=== PATIENT | male | born 1965 | race Caucasian/White ===

== ENCOUNTER → 2020-12-09 | Outpatient (CLI) | payer SELFPAY ==
--- NOTE | 2020-12-09 10:37 | US ---
EXAMINATION TYPE: US abdomen limited DATE OF EXAM: 12/09/2020 COMPARISON: NONE CLINICAL HISTORY: R10.9 ABD PAIN,R10.11 RUQ PAIN. RUQ pain EXAM MEASUREMENTS: Liver Length: 16.9 cm Gallbladder Wall: 0.2 cm Right Kidney: 10.1 x 4.9 x 5.6 cm Limited due to overlying bowel gas and patient body habitus Pancreas: Obscured by bowel gas Liver: Limited due to patient body habitus Gallbladder: Echogenic focus = 2.4 x 1.9 cm Evidence for sonographic Jeffers's sign: neg CBD: Obscured by overlying bowel gas Right Kidney: No hydronephrosis or masses seen Suboptimal study. Visualized liver markedly heterogeneously hyperechoic making evaluation suboptimal. There is large dependent gallstone. No surrounding fluid or abnormal gallbladder wall thickening see n on images saved. IMPRESSION: Marked fatty infiltration of liver suspected. Underlying hepatocellular disease not exclu ded. Single large gallstone. Suboptimal study but no convincing evidence for acute cholecystitis.
== END | disposition home or self-care (01) ==
LOC: RADUSWWP 09:51
PROVIDERS: ATTEND Family Medicine
DX: K80.20 Calculus of gallbladder without cholecystitis without obstruction (principal)
CPT/HCPCS: 76705

== ENCOUNTER 2021-01-20 06:20 | Day surgery (SDC) | payer SELFPAY ==
[2021-01-18 13:23] VITALS: BMI 35.3
[~2021-01-20 06:20] MED LIST: DEXAMETHASONE SOD PHOSPHATE 4 MG/ML 1 ML VIAL IV ONE; HEPARIN SODIUM,PORCINE/PF 5,000 UNIT/0.5 ML SYRINGE SQ PRN; LACTATED RINGERS 1,000 ML IV SCH; MIDAZOLAM 2 MG/2 ML VIAL IV PRN; ONDANSETRON 4 MG/2 ML VIAL IVP ONE; SCOPOLAMINE 1.5MG/72HR PATCH TRANSDERM ONE
[2021-01-20] MEDS ORDERED: LIDOCAINE 1% (10MG/ML) FOR IV START INTRADERMA ONE (06:56)
[2021-01-20 07:04] LABS: Glucose,Whole Blood 183 mg/dL (75-99)
[2021-01-20] MEDS ORDERED: MIDAZOLAM 2 MG/2 ML VIAL IV ONE (07:15)
[2021-01-20] MEDS ORDERED: INDOCYANINE GREEN 25 MG VIAL IV ONE (07:31)
[2021-01-20] MEDS ORDERED: GLYCOPYRROLATE 0.2 MG/ML 2 ML VIAL ONE (07:31)
[2021-01-20] MEDS ORDERED: NEOSTIGMINE 1 MG/ML 10 ML VIAL ONE (07:31)
[2021-01-20] MEDS ORDERED: PHENYLEPHRINE-0.9% NACL SYG 1,000 MCG/10 ML SYRINGE ONE (07:31)
[2021-01-20] MEDS ORDERED: PROPOFOL 10 MG/ML 20 ML VIAL IV ONE (07:31)
[2021-01-20] MEDS ORDERED: SUCCINYLCHOLINE CHLORIDE 100 MG/5 ML SYR IV ONE (07:31)
[2021-01-20] MEDS ORDERED: fentaNYL (PF) 50 MCG/ML 2 ML AMP ONE (07:31)
[2021-01-20] MEDS ORDERED: ROCURONIUM 10 MG/ML (5 ML VIAL) IV ONE (07:31)
[2021-01-20] MEDS ORDERED: KETOROLAC 15 MG/ML 1 ML VIAL ONE (07:31)
[2021-01-20] MEDS ORDERED: HEPARIN SODIUM,PORCINE 5,000 UNIT/ML 1 ML VIAL ONE (07:31)
[2021-01-20] MEDS ORDERED: INDOCYANINE GREEN 25 MG VIAL IV STA (07:32)
--- NOTE | 2021-01-20 07:34 | P.GSHP ---
History of Present Illness H&P Date: 01/20/21 CHIEF COMPLAINT: Cholecystitis HISTORY OF PRESENT ILLNESS: The patient is a 55-year-old male who presents with history of epigastric including right upper quadrant abdominal pain. He underwent diagnostic studies for the gallbladder. Separately his clinical picture was consistent with cholecystitis. Now he presents for surgical intervention. PAST MEDICAL HISTORY: Please see list PAST SURGICAL HISTORY: Please see list MEDICATIONS: Please see list ALLERGIES: Denies. SOCIAL HISTORY: No illicit drug use or recent tobacco use FAMILY HISTORY: Pertinent for gallbladder disease REVIEW OF ORGAN SYSTEMS: CONSTITUTIONAL: No reports of fevers or chills. HEENT: Denies any troubles with the vision or hearing. PHYSICAL EXAM: VITAL SIGNS: Afebrile vital signs stable GENERAL: Well-developed pleasant male in no acute distress. HEENT: No scleral icterus. Extraocular movements grossly intact. Moist buccal mucosa. NECK: Supple without lymphadenopathy. CHEST: Unlabored respirations. Equal bilateral excursions. CARDIOVASCULAR:Distal 2+ pulses. ABDOMEN: Soft, nondistended. Tender along the epigastrium and right upper quadrant. MUSCULOSKELETAL: No clubbing, cyanosis, or edema. NEURO : No focal or lateralizing signs. Cranial nerves II-12 within normal limits. PSYCH: Alert and oriented to person, place and time. SKIN: Well perfused. Good skin turgor. ASSESSMENT: 1. Epigastric and right upper quadrant abdominal pain 2. Chronic cholecystitis PLAN: 1. Will need a robotic cholecystectomy possible open. Benefits and risks were described. 2. DVT prophylaxis 3. Antibiotic prophylaxis. Past Medical History Past Medical History: Diabetes Mellitus, Hyperlipidemia, Hypertension History of Any Multi-Drug Resistant Organisms: None Reported Past Surgical History: Orthopedic Surgery Additional Past Surgical History / Comment(s): left wrist surgery (fx 2006) Past Anesthesia/Blood Transfusion Reactions: No Reported Reaction Past Psychological History: No Psychological Hx Reported Smoking Status: Current every day smoker Past Alcohol Use History: Rare Additional Past Alcohol Use History / Comment(s): smokes cigars, hx of cigarettes-started as teenager, smoked cigarettes up til 2002 and started smoking cigars 2004. Past Drug Use History: None Reported - Past Family History Mother Family Medical History: No Reported History Medications and Allergies Home Medications Medication Instructions Recorded Confirmed Type Acetaminophen [Tylenol Extra 500 mg PO DIRECTED PRN 01/18/21 01/20/21 History Strength] Glimepiride [Amaryl] 4 mg PO AC-BRKFST 01/18/21 01/20/21 History Ibuprofen [Advil] 600 - 800 mg PO DIRECTED PRN 01/18/21 01/20/21 History Pioglitazone HCl 30 mg PO DAILY 01/18/21 01/20/21 History Pravastatin Sodium [Pravachol] 40 mg PO DAILY 01/18/21 01/20/21 History lisinopriL [Zestril] 20 mg PO DAILY 01/18/21 01/20/21 History metFORMIN HCL [Glucophage] 500 mg PO BID 01/18/21 01/20/21 History Allergies Allergy/AdvReac Type Severity Reaction Status Date / Time No Known Allergies Allergy Verified 01/20/21 06:48 Surgical - Exam Vital Signs Temp Pulse Resp BP Pulse Ox 98.4 F 86 16 174/79 96 01/20/21 06:45 01/20/21 06:45 01/20/21 06:45 01/20/21 06:45 01/20/21 06:45 Results - Labs Abnormal Lab Results - Last 24 Hours (Table) 01/20/21 Range/Units 06:52 POC Glucose (mg/dL) 183 H (75-99) mg/dL
[2021-01-20] MEDS ORDERED: HEPARIN SODIUM,PORCINE/PF 5,000 UNIT/0.5 ML SYRINGE SQ PRN (07:35)
[2021-01-20] MEDS ORDERED: LIDOCAINE 1%-EPI 1:100,000 20 ML VIAL SQ ONE (07:35)
[2021-01-20 08:14] LABS: HCT 38.7 % (39.0-53.0); HGB 13.3 gm/dL (13.0-17.5); MCH 30.8 pg (25.0-35.0); MCHC 34.4 g/dL (31.0-37.0); MCV 89.6 fL (80.0-100.0); Mean Platelet Volume 6.9; Platelet Count 327 k/uL (150-450); RBC 4.32 m/uL (4.30-5.90); RDW 13.2 % (11.5-15.5); WBC 9.2 k/uL (3.8-10.6)
[2021-01-20] MEDS ORDERED: LACTATED RINGERS 1,000 ML IV ONE (08:50)
[2021-01-20] MEDS: HYDROmorphone 0.5 MG/0.5 ML SYRINGE IVP PRN ×2 (09:35→09:49)
[2021-01-20 09:37] VITALS: TEMP 97.6
[2021-01-20] MEDS ORDERED: ACETAMINOPHEN IV (For NPO) 1,000 MG in EMPTY BAG 1 BAG IVPB STA (09:43)
[2021-01-20] MEDS ORDERED: TAMSULOSIN 0.4 MG CAP.ER.24H PO STA (09:43)
[2021-01-20] MEDS ORDERED: SIMETHICONE 80 MG CHEWABLE PO SCH (09:45)
[2021-01-20 09:46] LABS: Glucose,Whole Blood 259 mg/dL (75-99)
--- NOTE | 2021-01-20 09:47 | P.OP ---
Date of Procedure: 01/20/21 Description of Procedure: SURGEON: JEANNETTE FABIAN MD PREOPERATIVE DIAGNOSES: 1. Symptomatic gallstones 2. Right upper quadrant abdominal pain 3. Diabetes type 2 [id number] 4. Morbid obesity due to excess calories BMI 35.8 5. Hypertensive heart disease with cardiomyopathy 6. Hyperlipidemia 7. Tobacco abuse disorder POSTOPERATIVE DIAGNOSES: 1. Symptomatic gallstones 2. Right upper quadrant abdominal pain 3. Diabetes type 2 [id number] 4. Morbid obesity due to excess calories BMI 35.8 5. Hypertensive heart disease with cardiomyopathy 6. Hyperlipidemia 7. Tobacco abuse disorder OPERATION: Robotic-assisted da Chapito Xi laparoscopic cholecystectomy, multiport with FIREFLY ESTIMATED BLOOD LOSS: 5 mL. SPECIMENS REMOVED: Gallbladder. COMPLICATIONS: None. OPERATIVE FINDINGS: 1. Extremely large gallstone over 4 to 5 cm adding complexity to case INDICATIONS: The patient is a 55-year-old male who presents with symptomatic gallstones. Robotic assisted laparoscopic approach was described. Benefits and risks of the procedure including but not limited to bleeding, infection, injury to the biliary tree was described. Informed consent was obtained. DESCRIPTION OF PROCEDURE: Patient was brought to the operating room, placed in supine position. After general induction, the abdomen had been prepped and draped in standard sterile fashion. The robotic da Chapito XI system was primed. After a timeout protocol was performed, the patient had been prepped and draped in standard sterile fashion. The patient was injected with indocyanine green. A 5 mm 0 degrees laparoscopic trocar entry was performed along the left upper quadrant. The abdomen insufflated to 15 mmHg pressure which was tolerated well. Diagnostic laparoscopy demonstrated no injury to bowel viscera or mesentery. The liver surface was unremarkable. Next, two 8 mm robotic ports were placed along the right upper abdomen. The camera 8-mm port was maintained along the epigastrium. Another 8 mm port was placed along the left upper abdominal wall after exchanging the 5 mm port. Please note that the ports were placed at least 10 to 15 cm away from the target anatomy of the gallbladder. The robot was docked along the left lateral abdomen. The patient was repositioned in reverse Trendelenburg position. Using a grasper for arm 3, a grasper for arm 4, including hook cautery for arm 1, the robotic system was docked and primed as described. Instruments were interchanged by the assistant center manager including hook cautery, Bovie cautery and clip appliers. I had sat at the console. Next attention was brought to the infundibulum and cystic structures. The infundibulum and cystic duct were dissected free from surrounding tissues. The cystic duct was isolated. FIREFLY was used to identify the cystic artery and cystic structures. A critical view of safety was obtained. Large PLASTIC clips were used throughout the entire case. Using a clip aquaculture director, 2 clips were placed at the junction of the infundibulum and cystic duct. The cystic duct was divided between clips. Next, the cystic artery was similarly clipped and cauterized. Electro-Bovie cautery was used to remove the gallbladder from the hepatic fossa. Hemostasis was checked and found to be adequate. The robot was undocked. I re-scrubbed into the case. Using a 10 mm Endo Catch bag via the left upper quadrant incision, the specimen was removed from the abdominal cavity. All pneumoperitoneum instruments were evacuated from the abdominal cavity. The incisions were reapproximated using 4-0 Monocryl in an interrupted subcuticular fashion. Fascial defects were less than 8 mm in size. Please note along the trocar sites, local anesthetic was placed as a field block prior to insertion of all instruments. Liquid glue was applied to the skin. At the end of the procedure needle, sponge, and instrument count had been verified correct by the fuel technician. The patient was transferred to postanesthesia care unit in stable condition. Intraoperative films were shared with the patient's family. Plan - Discharge Summary Discharge Rx Participant: Yes New Discharge Prescriptions: New RX: Simethicone [Gas-X] 125 mg PO AC-TID PRN #20 capsule PRN Reason: Pain RX: Tamsulosin [Flomax] 0.4 mg PO DAILY #5 cap.er.24h Acetaminophen Tab [Tylenol Tab] 1,000 mg PO Q6HR PRN #30 tablet PRN Reason: Pain Continue RX: lisinopriL [Zestril] 20 mg PO DAILY RX: Glimepiride [Amaryl] 4 mg PO AC-BRKFST RX: Pioglitazone HCl 30 mg PO DAILY RX: Pravastatin Sodium [Pravachol] 40 mg PO DAILY RX: metFORMIN HCL [Glucophage] 500 mg PO BID RX: Acetaminophen [Tylenol Extra Strength] 500 mg PO DIRECTED PRN PRN Reason: Pain Discontinued Ibuprofen [Advil] 600 - 800 mg PO DIRECTED PRN PRN Reason: Pain Discharge Medication List RX: Acetaminophen [Tylenol Extra Strength] 500 mg PO DIRECTED PRN 01/18/21 [History] RX: Glimepiride [Amaryl] 4 mg PO AC-BRKFST 01/18/21 [History] RX: Pioglitazone HCl 30 mg PO DAILY 01/18/21 [History] RX: Pravastatin Sodium [Pravachol] 40 mg PO DAILY 01/18/21 [History] RX: lisinopriL [Zestril] 20 mg PO DAILY 01/18/21 [History] RX: metFORMIN HCL [Glucophage] 500 mg PO BID 01/18/21 [History] Acetaminophen Tab [Tylenol Tab] 1,000 mg PO Q6HR PRN #30 tablet 01/20/21 [Rx] RX: Simethicone [Gas-X] 125 mg PO AC-TID PRN #20 capsule 01/20/21 [Rx] RX: Tamsulosin [Flomax] 0.4 mg PO DAILY #5 cap.er.24h 01/20/21 [Rx] Follow up Appointment(s)/Referral(s): Jeannette Fabian MD [STAFF PHYSICIAN] - 01/24/21 Patient Instructions/Handouts: Laparoscopic Cholecystectomy (GEN), Low Fat Diet (ED) Activity/Diet/Wound Care/Special Instructions: Recommend low-fat diet for the next 2 days. No lifting over 10 pounds in 2 weeks until February. December shower. No bath tub soaks for two weeks until February. Diet as tolerated. Use Tylenol, simethicone scheduled for the next 24-48 hours for best pain relief. Use ice along incisions for today to prevent swelling. Discharge Disposition: HOME SELF-CARE
[2021-01-20 10:00] LABS: ALT 21 U/L (4-49); AST 21 U/L (17-59); African American GFR (CKD) >90 (>60 ml/min/1.73 sqM); Albumin 3.6 g/dL (3.5-5.0); Alkaline Phosphatase 76 U/L (38-126); Anion Gap 9 mmol/L; Blood Urea Nitrogen 18 mg/dL (9-20); Calcium 8.8 mg/dL (8.4-10.2); Carbon Dioxide 24 mmol/L (22-30); Chloride 105 mmol/L (98-107); Glucose 191 mg/dL (74-99); Non-African American GFR(CKD) >90 (>60 ml/min/1.73 sqM); Potassium 4.7 mmol/L (3.5-5.1); Sodium 138 mmol/L (137-145); Total Bilirubin 0.4 mg/dL (0.2-1.3); Total Protein 5.8 g/dL (6.3-8.2)
[2021-01-20] MEDS ORDERED: INSULIN ASPART (NovoLOG) 100 UNIT/ML VIAL SQ ONE (10:03)
[2021-01-20 10:16] VITALS: RESP 16
[2021-01-20 10:28] LABS: Glucose,Whole Blood 275 mg/dL (75-99)
[2021-01-20 12:05] VITALS: BP 127/73; PULSE 79
== END 2021-01-20 11:56 | disposition home or self-care (01) ==
LOC: OR 06:20
PROVIDERS: ATTEND Surgery Plastic and Reconstructive Surgery
DX: K80.10 Calculus of gallbladder with chronic cholecystitis without obstruction (principal); E11.9 Type 2 diabetes mellitus without complications; E78.5 Hyperlipidemia, unspecified; I11.9 Hypertensive heart disease without heart failure; I42.9 Cardiomyopathy, unspecified; K76.0 Fatty (change of) liver, not elsewhere classified; Z98.890 Other specified postprocedural states; F17.290 Nicotine dependence, other tobacco product, uncomplicated; Z79.84 Long term (current) use of oral hypoglycemic drugs; Z79.899 Other long term (current) drug therapy; E66.01 Morbid (severe) obesity due to excess calories; Z68.35 Body mass index [BMI] 35.0-35.9, adult
CPT/HCPCS: 88304; 80053; 85027; 47564; J2250; J1644 ×2; J1100; J2710; J0690; J2405; J3010; J1885; J2370; J0330; J2704; J1170

== ENCOUNTER → 2021-02-08 | Outpatient (CLI) | payer OTHER ==
[2021-02-08 18:25] LABS: African American GFR (CKD) >90 (>60 ml/min/1.73 sqM); Blood Urea Nitrogen 21 mg/dL (9-20); Non-African American GFR(CKD) >90 (>60 ml/min/1.73 sqM)
--- NOTE | 2021-02-08 22:27 | CT ---
EXAMINATION TYPE: CT abdomen pelvis w con DATE OF EXAM: 02/08/2021 COMPARISON: Ultrasound abdomen limited December 09, 2020 HISTORY: Abdominal pain worsening post cholecystectomy CT DLP: 2001 mGycm, Automated Exposure Control for Dose Reduction was Utilized. CONTRAST: CT scan of the abdomen and pelvis is performed with oral and with IV Contrast, patient injected with 100 mL of Isovue 300. FINDINGS: LUNG BASES: No significant abnormality is appreciated. LIVER/GB: Gallbladder not seen consistent with history of recent cholecystectomy. Visualized liver is heterogeneously hypodense corresponding to diffuse fatty infiltration as well as suspected on ultras ound. PANCREAS: No significant abnormality is seen. SPLEEN: No significant abnormality is seen. ADRENALS: No significant abnormality is seen. KIDNEYS: Symmetric cortical medullary uptake and excretion without hydronephrosis seen bilaterally. BOWEL: Oral contrast does not reach level of terminal ileum making evaluation of distal bowel slightl y suboptimal. No suspicious small or large bowel dilatation. PROSTATE/SEMINAL VESICLES: No gross abnormality seen. LYMPH NODES: No greater than 1cm abdominal or pelvic lymph nodes are appreciated. OSSEOUS STRUCTURES: Moderate disc space narrowing with vacuum disc phenomenon at L5-S1 level. Mild di sc space narrowing and vacuum disc phenomenon at L4-L5 level. Multilevel facet arthropathy in the mid to lower lumbar spine. OTHER: No significant additional abnormality is seen. IMPRESSION: No significant acute finding is seen to account for patient's clinical symptoms. No free air. No concerning focal fluid collection.
== END | disposition home or self-care (01) ==
LOC: RADCTMAIN 17:03
PROVIDERS: ATTEND Surgery Plastic and Reconstructive Surgery
DX: K57.32 Diverticulitis of large intestine without perforation or abscess without bleeding (principal)
CPT/HCPCS: 82565; 84520; 74177; 36415; Q9967

== ENCOUNTER → 2022-11-15 | Outpatient (CLI) | payer OTHER ==
--- NOTE | 2022-11-15 16:55 | XR ---
EXAMINATION TYPE: XR foot complete LT, XR ankle complete LT DATE OF EXAM: 11/15/2022 COMPARISON: NONE HISTORY: Pain TECHNIQUE: 3 views of the left ankle and left foot are submitted for evaluation. FINDINGS: There is bony fragmentation noted on the lateral projection overlying the region of the libra us. Suspect fracture of the anterior talus and possibly the navicular. There is extensive soft tissue swelling noted. Ankle mortise is intact. There appears to be healed fracture involving the base of t he fifth metatarsal. No additional fracture seen with certainty. Patient may benefit from CT of the a nkle. IMPRESSION: 1. As above
== END | disposition home or self-care (01) ==
LOC: RADXRMAIN 15:35
PROVIDERS: ATTEND Emergency Medicine
DX: S90.02XA Contusion of left ankle, initial encounter (principal); S90.31XA Contusion of right foot, initial encounter; S93.492A Sprain of other ligament of left ankle, initial encounter

== ENCOUNTER → 2022-12-03 | Outpatient (CLI) | payer OTHER ==
--- NOTE | 2022-12-03 16:07 | CT ---
EXAMINATION TYPE: CT lower leg LT wo con CT DLP: 185.10 mGycm, Automated exposure control for dose reduction was used. DATE OF EXAM: 12/03/2022 3:53 PM COMPARISON: Left foot radiograph 11/26/2022, left foot and ankle radiographs 11/15/2022. CLINICAL INDICATION:Male, 56 years old with history of M79.662; PHH, left foot injury x6 months ago TECHNIQUE: Axial images were obtained of the left lower extremity without the use of IV contrast. Ad ditional coronal and sagittal reformatted images and soft tissue and bone window were obtained for re view. 3-D reconstruction was created on a separate workstation. FINDINGS: There is again acute bony comminuted fragmentation along the anterior superior aspect of th e talus with multiple subchondral cystic changes at the navicular talar junction. Small joint effusio n demonstrated with surrounding soft tissue edema. Suspected remote injury to the base of the fifth m etatarsal. Ankle mortise is intact. Posterior and plantar calcaneal enthesophytes. IMPRESSION: Acute comminuted fracture involving the anterior talus with degenerative changes of the navicular libra ar joint.
== END | disposition home or self-care (01) ==
LOC: RADCTMAIN 15:31
PROVIDERS: ATTEND Orthopaedic Surgery
DX: S92.102A Unspecified fracture of left talus, initial encounter for closed fracture (principal); M19.072 Primary osteoarthritis, left ankle and foot

== ENCOUNTER → 2023-08-28 | Outpatient (CLI) | payer BC ==
--- NOTE | 2023-08-28 14:50 | US ---
EXAMINATION TYPE: US carotid duplex BILAT DATE OF EXAM: 08/28/2023 COMPARISON: NONE CLINICAL INDICATION: Male, 57 years old with history of I65.23 MICHELE CAROTID ARTERY STENOSIS; No histor y of stroke TECHNIQUE: Carotid duplex ultrasound examination. Indirect Doppler criteria was utilized. FINDINGS: EXAM MEASUREMENTS: RIGHT: Peak Systolic Velocity (PSV) cm/sec ----- Right CCA: 113 ----- Right ICA: 112 ----- Right ECA: 90.7 ICA/CCA ratio: 0.99 RIGHT: End Diastole cm/sec ----- Right CCA: 15.6 ----- Right ICA: 13.6 ----- Right ECA: 0.0 LEFT: Peak Systolic Velocity (PSV) cm/sec ----- Left CCA: 107 ----- Left ICA: 81.7 ----- Left ECA: 97.6 ICA/CCA ratio: 0.76 LEFT: End Diastole cm/sec ----- Left CCA: 17.2 ----- Left ICA: 23.6 ----- Left ECA: 8.2 VERTEBRALS (direction of flow): Right Vertebral: Antegrade Left Vertebral: Antegrade Rhythm: Normal CHECK TOTALER NOTES: Mild plaque bilateral bifurcations. No evidence of significant stenosis IMPRESSION: Less than 50% stenosis of bilateral carotid bifurcations. Criteria for Assigning % of Stenosis / Diameter reduction (Estimation based on the indirect measurements of the internal carotid artery velocities (ICA PSV). 1. Normal (no stenosis)=ICA PSV < 125 cm/s: ratio < 2.0: ICA EDV<40 cm/s. 2. Less than 50% stenosis=ICA PSV < 125 cm/s: ratio < 2.0: ICA EDV<40 cm/s. 3. 50 to 69% stenosis=ICA PSV of 125 to 230 cm/s: ration 2.0 ? 4.0: ICA EDV 40-100 cm/s. 4. Greater than 70% stenosis to near occlusion= ICA PSV > 230 cm/s: ratio > 4.0: ICA EDV > 100 cm/s. 5. Near occlusion= ICA PSV velocities may be low or undetectable: variable ratio and ICA EDV. 6. Total occlusion=unable to detect flow.
== END | disposition home or self-care (01) ==
LOC: RADUSWWP 11:50
PROVIDERS: ATTEND Internal Medicine
DX: I65.23 Occlusion and stenosis of bilateral carotid arteries (principal)
CPT/HCPCS: 93880

== ENCOUNTER 2023-10-08 05:56 | Day surgery (SDC) | payer BC ==
[2023-10-03 17:02] VITALS: BMI 34.4
[2023-10-08] MEDS ORDERED: LIDOCAINE 1% (10MG/ML) FOR IV START INTRADERMA PRN (06:13)
[2023-10-08] MEDS: LACTATED RINGERS 1,000 ML IV SCH (06:26)
[2023-10-08 06:39] LABS: Glucose,Whole Blood 154 mg/dL (70-110)
[2023-10-08 06:48] VITALS: TEMP 97.4
[2023-10-08] MEDS ORDERED: PROPOFOL 10 MG/ML 20 ML VIAL IV ONE (06:58)
[2023-10-08] MEDS ORDERED: LIDOCAINE 1% INJ 10MG/ML (20 ML MDV) ONE (06:58)
--- NOTE | 2023-10-08 07:30 | P.PCN ---
Date of Procedure: 10/08/23 Procedure(s) Performed: Brief history: Patient is a pleasant 57-year-old white male scheduled for an elective upper endoscopy as well as colonoscopy as a part of evaluation of GERD and screening for colon cancer Procedure performed: Esophagogastroduodenoscopy with biopsy Colonoscopy with snare polypectomy Preoperative diagnosis: GERD Screening for colon cancer Anesthesia: MAC Procedure: After informed consent was obtained from the patient was brought into the endoscopy unit and IV sedation was administered by anesthesia under continuous monitoring. Initially upper endoscopy was done. The Olympus GF 160 video endoscope was inserted inserted into the mouth and esophagus intubated without any difficulty and was gradually advanced into the stomach and duodenum and carefully examined. The bulb and second part of the duodenum appeared normal. The scope was then withdrawn into the stomach adequately insufflated with air and upon careful examination the antrum had mild antral gastritis and biopsies were done from this area. Mucosa of the body, cardia and fundus appeared normal. The scope was then withdrawn into the esophagus. Small hiatal hernia noted. The GE junction was located at 40 cm to the incisors. It appeared regular with no erythema erosions or ulcerations. Rest of the esophagus appeared normal. Patient tolerated the procedure well. At this time the patient continued to remain sedation. Initial digital rectal examination was normal. Olympus CF 160 video colonoscope was then inserted into the rectum and gradually advanced to the cecum without any difficulty. Careful examination was performed as the scope was gradually being withdrawn. The prep was excellent. The cecum, ascending colon, transverse colon, appeared normal. The descending colon there was a 7 mm polyp that was removed by cold snare polypectomy. Rest of the descending colon, sigmoid colon and rectum appeared normal. In the proximal rectum there was a 5 mm polyp removed by cold snare polypectomy. Retroflexion was performed in the rectum and no lesions were noted. Patient tolerated the procedure well. Impression: 1. Upper endoscopy revealed mild antral gastritis and small hiatal hernia 2. Colonoscopy revealed 7 mm descending colon polyp and a 5 mm proximal rectal polyp status post cold snare polypectomy Recommendations: Findings of this examination were discussed with the patient as well as his family. He was advised to follow with the biopsy results. If the biopsy reve als adenoma he can have a repeat colonoscopy in 5 years.
[2023-10-08 07:49] LABS: Glucose,Whole Blood 134 mg/dL (70-110)
[2023-10-08 07:57] VITALS: BP 115/64; PULSE 60; RESP 16
== END 2023-10-08 08:10 | disposition home or self-care (01) ==
LOC: ORWHC2ENDO 05:56
PROVIDERS: ATTEND Internal Medicine Gastroenterology
DX: Z12.11 Encounter for screening for malignant neoplasm of colon (principal); D12.4 Benign neoplasm of descending colon; K29.50 Unspecified chronic gastritis without bleeding; K21.9 Gastro-esophageal reflux disease without esophagitis; K44.9 Diaphragmatic hernia without obstruction or gangrene; K62.1 Rectal polyp; I10 Essential (primary) hypertension; E78.5 Hyperlipidemia, unspecified; E11.9 Type 2 diabetes mellitus without complications; Z79.899 Other long term (current) drug therapy; Z79.84 Long term (current) use of oral hypoglycemic drugs; Z87.891 Personal history of nicotine dependence
CPT/HCPCS: 45385; 43239; J2001; J2704; 88305

== ENCOUNTER → 2024-06-17 | Outpatient (CLI) | payer BC, OTHER ==
[2024-06-17 13:37] VITALS: BP 133/71; PULSE 73; RESP 16; TEMP 97.8
--- NOTE | 2024-06-17 13:57 | P.SLEEP ---
History of Present Illness DATE: 06/17/2024 CONSULTATION/NEW PATIENT EVALUATION HISTORY OF PRESENT ILLNESS/SLEEP-WAKE EVALUATION: 58-year-old gentleman had been evaluated in the sleep center for possible obstructive sleep apnea hypopnea syndrome. SLEEP SCHEDULE: Usually sleep schedule from 9 PM to 5:30 AM. FALLING ASLEEP: Sometimes patient has difficulties with falling asleep, has TV set in bedroom. DURING SLEEP: Patient sleeps in different positions with snoring and awakenings from sleep 4 times with 1 episode of nocturia. No history of hypnogogical hallucinations, sleep paralysis, or cataplexy. DURING THE DAY/WAKE STATE: In the morning patient wake up tired. Leland sleepiness scale is 3. Usually patient does not take naps. PAST MEDICAL HISTORY: Hypertension, diabetes mellitus. PAST SURGICAL HISTORY: Cholecystectomy. MEDICATIONS: Lisinopril 5 mg once a day, metformin 500 mg, Mounjaro. SOCIAL HISTORY: Please see below. FAMILY HISTORY: Please see below. REVIEW OF SYSTEMS: Snoring, multiple awakenings from sleep. No fevers. No double vision. No recent chest pain. No shortness of breath. No abdominal pain. No bleeding episodes. No blood in urine. No seizure episodes. PHYSICAL EXAMINATION: GENERAL: A pleasant patient without any distress. VITAL SIGNS: Please see below, weight 232.8 pounds, BMI 34.2. HEENT: PERRLA, EOMI. Evaluation of oropharynx showed tongue protrudes midline, low position of soft palate Mallampati 4. NECK: Supple. No JVD. Thyroid is not palpable. 17 inches in circumference. LUNGS: Clear to percussion and to auscultation. Good air exchange. No wheezing or rhonchi. HEART: S1, S2 regular. No murmurs, gallops or rubs. ABDOMEN: Soft and nontender. Bowel sounds are present. No organomegaly a ppreciated. EXTREMITIES: No clubbing or cyanosis. CCNA: Awake, alert, and oriented x3. Cranial nerves 2 to 7 intact. There is no fasciculation or atrophy noted. No focal deficits observed. ASSESSMENT: 1. Snoring, multiple awakenings from sleep, extremely low position of soft palate Mallampati 4, wide neck 17 inches in circumference. Obstructive sleep apnea hypopnea syndrome. 2. Obesity, BMI 34.2. 3. Hypertension. 4. Diabetes mellitus. 5 status post cholecystectomy. PLAN: 1. Polysomnography for evaluation of patient's breathing during sleep. 2. Following plan after reading sleep study. 3. Preferable position during sleep on the side. 4. No driving if patient feels any sleepiness. Patient is aware of civil and criminal liability for unsafe driving. 5. Sleep hygiene with regular sleep time for at least 7.5-8 hours. 6. Watching and losing weight. Thank you very much for referring this patient for consultation. Sincerely, Stewart Dong MD, PhD, FAASM. Diplomat of [place] [employer], Sleep Medicine Board by [place] [employer] Operations Manager of [facility] [place] cc: Ike Mcgregor MD Past Medical History Past Medical History: Diabetes Mellitus, Hyperlipidemia, Hypertension, Thyroid Disorder Additional Past Medical History / Comment(s): FX LT ANKLE 2022-STILL HAVING PAIN AND SWELLING, ANXIETY, ARTHRITIS IN LEFT ANKLE History of Any Multi-Drug Resistant Organisms: None Reported Past Surgical History: Cholecystectomy, Orthopedic Surgery Additional Past Surgical History / Comment(s): left wrist surgery (fx 2006), Past Anesthesia/Blood Transfusion Reactions: No Reported Reaction Past Psychological History: Anxiety Smoking Status: Current some day smoker Past Alcohol Use History: Rare Additional Past Alcohol Use History / Comment(s): smokes cigars,WILL HAVE A CIGAR MAYBE ONCE A MONTH, hx of cigarettes-started as teenager, smoked cigarettes up til 2002 and started smoking cigars 2004. Past Drug Use History: None Reported - Past Family History Mother Family Medical History: No Reported History Additional Family Medical History / Comment(s): gRANDFATHER DIABETIC. Medications and Allergies Home Medications Medication Instructions Recorded Confirmed Type Glimepiride [Amaryl] 4 mg PO DAILY 01/18/21 10/08/23 History Cholecalciferol [Vitamin D3 (25 25 mcg PO DAILY #30 tab 04/12/23 10/08/23 Rx Mcg = 1000 Iu)] Cyanocobalamin (Vitamin B-12) 1,000 mcg PO DAILY #30 tab 04/12/23 10/08/23 Rx [Vitamin B-12] Escitalopram [Lexapro] 10 mg PO DAILY #30 tab 04/12/23 10/08/23 Rx Pioglitazone HCl 30 mg PO DAILY #30 tab 04/12/23 10/08/23 Rx Sildenafil Citrate 50 mg PO DAILY PRN 04/12/23 10/08/23 History lisinopriL [Zestril] 20 mg PO DAILY #30 tab 04/12/23 10/08/23 Rx metFORMIN HCL ER [Glucophage XR] 500 mg PO DAILY #30 tab 04/12/23 10/08/23 Rx Allergies Allergy/AdvReac Type Severity Reaction Status Date / Time No Known Allergies Allergy Verified 10/08/23 06:20 Physical Exam Vitals: Vital Signs Temp Pulse Resp BP Pulse Ox 06/17/24 13:34 97.8 F 73 16 133/71 96 Intake and Output 06/16/24 06/17/24 06/17/24 22:59 06:59 14:59 Other: Weight 108.182 kg Sleep Note - Sleep Data ESS Total: 3 - Sleep Note Sleep Note: Temperature: 97.8 F Pulse Rate: 73 Respiratory Rate: 16 Blood Pressure: 133/71 SpO2: 96 Height: 5 ft 9 in Weight: 108.182 kg BMI: Neck Circumference: 17
== END ==
LOC: 3 N SLEEP 13:09
PROVIDERS: ATTEND Internal Medicine
DX: G47.33 Obstructive sleep apnea (adult) (pediatric) (principal); E66.9 Obesity, unspecified; I10 Essential (primary) hypertension; E11.9 Type 2 diabetes mellitus without complications; Z90.49 Acquired absence of other specified parts of digestive tract; Z98.890 Other specified postprocedural states; Z68.34 Body mass index [BMI] 34.0-34.9, adult; Z79.84 Long term (current) use of oral hypoglycemic drugs; Z79.899 Other long term (current) drug therapy
CPT/HCPCS: 99211

== ENCOUNTER 2024-07-05 19:38 | Outpatient (CLI) | payer SELFPAY ==
--- NOTE | 2024-07-22 11:06 | P.PCN ---
Description of Procedure: POLYSOMNOGRAPHY REPORT PROCEDURE(S)/DATE(S): Polysomnography 07/05/2024 CLINICAL: Patient has been seen in the sleep center for evaluation of obstructive sleep apnea-hypopnea syndrome. Please see my consultation. Sleep study has been done for evaluation of patient breathing during the sleep. PROCEDURE: The standard montage for clinical polysomnography included the electroencephalogram, the electrooculogram, the mentalis surface electromyography and Lead II cardiography. The respiratory battery consisted of measurements of nasal/buccal air flow, pressure transducer measurements from nose, thoracic and/or abdominal effort and intercostal surface electromyography. Video monitoring has been done to check for any parasomnia events. Nocturnal oxyhemoglobin saturations were obtained by finger oximetry. Step-gallardo titration with positive airway pressure was utilized to control the respiratory events, if necessary. RESULTS: During the diagnostic sleep study sleep efficiency was normal at 90.3%. Latency to sleep onset was normal 21.5 min. Sleep architecture showed stage NI was increased to 12.6%, Delta sleep was absent 0%, REM sleep was normal 25.1%. Respiratory channel showed 0 obstructive apneas, 0 mixed apneas, 0 central apneas, 26 hypopneas with lowest oxygen level 77%. Total apnea hypopnea index was 4.6. Oxygen level was below or equal 88% for 21.3 minutes. Heart rate was in the range between 68 and 74 every 71. EMG showed 46.8 periodic limb movements per hour with 0.9 micro-arousals per hour. IMPRESSIONS: 1. Minimal amount of apneas and hypopneas have been documented, normal range by today's criteria. 2. Oxygen level was below normal for 21.3 minutes. Baseline oxygen saturation was 92% while patient was awake. Patient has long history of smoking, will need evaluation for possible COPD. 3. Severe periodic limb movements have been documented. Please see other impressions from consultation PLAN: 1. I will see patient for follow-up visit to explain results of the test and recommendations. 2. Losing weight program. 3. Sleep hygiene with regular time in bed for at least 7-1/2 hours. 4. No driving if feeling sleepiness. 5. Please check iron profile including ferritin level. Low level of iron may increase the risk for periodic limb movements. Thank you very much for allowing me to participate in the management of your patient. Sincerely, Stewart Dong MD, PhD, FAASM. Diplomat of [place] [employer], Sleep Medicine Board by [place] [employer] [facility] [place] cc: Ike Mcgregor MD
== END 2024-07-06 05:35 | disposition home or self-care (01) ==
LOC: 3 N SLEEP 19:38
PROVIDERS: ATTEND Internal Medicine
DX: R06.81 Apnea, not elsewhere classified (principal); G47.61 Periodic limb movement disorder; Z87.891 Personal history of nicotine dependence
CPT/HCPCS: 95810